=== PATIENT | male | born 1930 | race Caucasian/White ===

== ENCOUNTER 2018-10-24 18:59 | Emergency (ER) | payer OTHER ==
--- OUTSIDE RECORDS SUMMARY | 2018-10-24 19:02 | XMS REPORT | Clinical Summary ---
:1930 Author Organization [facility] Address [address] [place] [address] Care Team Providers Name Role Phone Demetrius Borrero MD Primary Care Provider Allergies Active Allergy Reactions Severity Noted Date Comments Sulfa (Sulfonamide Antibiotics) 11/09/2016 Medications Medication Sig Dispensed Refills Start Date End Date Status DOCOSAHEXANOIC ACID/EPA Take by 0 Active (FISH OIL ORAL) mouth. omeprazole (PriLOSEC) 40 Take 40 mg 0 Active MG capsule by mouth daily. ranitidine (ZANTAC) 150 MG Take 150 mg 0 Active tablet by mouth 2 (two) times a day. atenolol (TENORMIN) 50 MG Take 1 90 tablet 3 01/13/2017 Active tabletIndications: tablet (50 Essential hypertension mg total) by mouth daily. hydroCHLOROthiazide Take 1 30 tablet 6 11/09/2016 11/09/2017 (HYDRODIURIL) 25 MG tablet tablet (25 mg total) by mouth daily. 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 Pre-op examination 11/09/2016 Encounters Date Type Specialty Care Team Description 11/08/2017 Office Visit Cardiology Henrry Franco MD Coronary artery disease involving [place] coronary artery of [place] heart without angina pectoris (Primary Dx); History of right coronary artery stent placement after 10/23/2017 Social History Tobacco Use Types Packs/Day Years Used Date Never Smoker Smokeless Tobacco: Never Used Alcohol Use Drinks/Week oz/Week Comments No Sex Assigned at Date Recorded Not on file Job Start Date Occupation Industry Not on file Not on file Not on file Travel History Travel Start Travel End No recent travel history available. Last Filed Vital Signs Vital Sign Reading Time Taken Blood Pressure 151/67 11/08/2017 1:05 PM CDT Pulse 59 11/08/2017 1:05 PM CDT Temperature - - Respiratory Rate - - Oxygen Saturation - - Inhaled Oxygen Concentration - - Weight 74.8 kg (165 lb) 11/08/2017 1:00 PM CDT Height 175.3 cm (5' 9") 11/08/2017 1:00 PM CDT Body Mass Index 24.37 11/08/2017 1:00 PM CDT Plan of Treatment Date Type Specialty Care Team Description 11/07/2018 Office Visit Cardiology Henrry Franco MD [address] [facility] [address] [place] [address] Health Maintenance Due Date Last Done Comments SHINGLES VACCINES (#1) 1980 65+ PNEUMOCOCCAL VACCINE (1 of 2 - PCV13) 1995 PNEUMOCOCCAL POLYSACCHARIDE VACCINE AGE 65 AND OVER 1995 INFLUENZA VACCINE 02/01/2019 Results Not on fileafter 10/23/2017 Insurance Payer Benefit Plan / Group Subscriber ID Type Phone Address MEDICARE MEDICARE PART A AND B xxxxxxxxxx Medicare [place], [place] [employer] xxxxxx-xx Commercial Advance Directives Patient has advance care planning documents on file. For more information, please contact:Prashanth Cuevas[address] [place] [address]
[2018-10-24 20:01] LABS: Absolute Lymphocytes (CBC) 0.9 K/uL (0.7-4.9); Absolute Monocytes 0.5 K/uL (0.1-1.3); Absolute Neutrophil 5.4 K/uL (1.8-8.0); Basophils % 0.4 % (0-1.3); Hematocrit 43.9 % (39.6-49.0); Lymphocytes % 13.4 % (15.3-44.8); MPV 8.5 fL (7.6-11.3); Monocytes % 7.9 % (3.3-12.3); RBC Red Blood Cell Count 4.56 M/uL (4.33-5.43)
[2018-10-24] MEDS ORDERED: NA CHLORIDE 0.9% 1,000 ML ONE (20:04)
[2018-10-24] MEDS ORDERED: ONDANSETRON 4 MG/2 ML VIAL ONE ×2 (20:04→21:42)
[2018-10-24 20:27] LABS: Albumin 3.4 g/dL (3.4-5.0); Bilirubin Direct 0.3 mg/dL (0-0.2); Bilirubin Total 1.3 mg/dL (0.2-1.0); Potassium 3.3 mmol/L (3.5-5.1); Protein, Total 6.4 g/dL (6.4-8.2)
[2018-10-24] MEDS ORDERED: MAGNE/ALUM HYDROXD 30 ML UCUP ONE (21:42)
--- NOTE | 2018-10-24 21:42 | ER ---
Nurse's Notes [facility] Name: Primo Umaña Age: 88 yrs Sex: Male : 1930 Arrival Date: 10/24/2018 Time: 19:01 Bed 6 Private MD: Demetrius Borrero H Diagnosis: Vomiting Presentation: 10/24 19:10 Presenting complaint: Patient states: vomiting, diarrhea, weakness X1 day. pt with hx ak1 ulcer and prostate cancer. pt stated vomit is black in color. Transition of care: patient was not received from another setting of care. Onset of symptoms was October 24, 2018. 19:10 Method Of Arrival: Wheelchair ak1 19:10 Acuity: NIKOLAS 3 ak1 19:26 Risk Assessment: Do you want to hurt yourself or someone else? Patient reports no lp1 desire to harm self or others. Initial Sepsis Screen: Does the patient meet any 2 criteria? No. Patient's initial sepsis screen is negative. Does the patient have a suspected source of infection? No. Patient's initial sepsis screen is negative. Care prior to arrival: None. Historical: - Allergies: 19:12 Sulfa (Sulfonamide Antibiotics); ak1 - Immunization history:: Adult Immunizations up to date. - Social history:: Smoking status: Patient/guardian denies using tobacco. - Family history:: not pertinent. - Ebola Screening: : No symptoms or risks identified at this time. - Hospitalizations: : No recent hospitalization is reported. Screenin:26 Abuse screen: Denies threats or abuse. Denies injuries from another. Nutritional lp1 screening: No deficits noted. Tuberculosis screening: No symptoms or risk factors identified. Fall Risk None identified. Assessment: 19:24 General: Appears in no apparent distress. Behavior is appropriate for age. Pain: Denies lp1 pain. Neuro: Level of Consciousness is awake, alert, obeys commands, Oriented to person, place, time, situation. Cardiovascular: Patient's skin is warm and dry. Respiratory: Respiratory effort is even, unlabored, Breath sounds are clear bilaterally. GI: Abdomen is flat, Bowel sounds present X 4 quads. Reports diarrhea, vomiting, emesis black in color. : No signs and/or symptoms were reported regarding the genitourinary system. EENT: No signs and/or symptoms were reported regarding the EENT system. Derm: Skin is intact, is fragile, is thin, Skin is dry, Skin is normal. Musculoskeletal: Circulation, motion, and sensation intact. 20:32 Reassessment: Patient appears in no apparent distress at this time. Patient and/or lp1 family updated on plan of care and expected duration. Pain level reassessed. Patient is alert, oriented x 3, equal unlabored respirations, skin warm/dry/pink. Patient states feeling better. 21:10 Reassessment: Patient states feeling of nausea returning at this time; Provider lp1 notified Patient denies pain at this time. 21:59 Reassessment: Patient is alert, oriented x 3, equal unlabored respirations, skin lp1 warm/dry/pink. Patient states relief of nausea Patient states feeling better. Patient states symptoms have improved. Vital Signs: 19:12 BP 118 / 70; Pulse 87; Resp 16; Temp 98.4; Pulse Ox 96% on R/A; Weight 70.31 kg (R); ak1 Height 5 ft. 9 in. (175.26 cm) (R); Pain 0/10; 19:24 BP 156 / 76; Pulse 81; Resp 20; Pulse Ox 97% on R/A; lp1 20:15 BP 137 / 70; Pulse 66; Resp 17; Pulse Ox 100% on R/A; Pain 0/10; lp1 21:00 BP 116 / 74; Pulse 68; Resp 18; Pulse Ox 100% on R/A; Pain 0/10; lp1 22:07 BP 134 / 69; Pulse 68; Resp 17; Pulse Ox 100% on R/A; lp1 19:12 Body Mass Index 22.89 (70.31 kg, 175.26 cm) [facility] ED Course: 19:01 Patient arrived in ED. as 19:02 Demetrius Borrero MD is Private Physician. as 19:12 Triage completed. ak1 19:14 Jenae Mcdonald, YOLI is Primary Nurse. lp1 19:15 Guerrero Do MD is Attending Physician. rn 19:24 Arm band placed on left wrist. lp1 19:28 Patient has correct armband on for positive identification. Placed in gown. Bed in low lp1 position. Call light in reach. equipment monitor phototypesetting on. Pulse ox on. NIBP on. 21:41 Demetrius Borrero MD is Referral Physician. rn 22:07 No provider procedures requiring assistance completed. lp1 22:25 IV discontinued, No redness/swelling at site. Pressure dressing applied. lp1 Administered Medications: 19:57 Drug: Zofran 4 mg Route: IVP; Site: right forearm; lp1 20:28 Follow up: Response: Nausea is decreased lp1 19:57 Drug: NS 0.9% 500 ml Route: IV; Rate: bolus; Site: right forearm; lp1 20:29 Follow up: IV Status: Completed infusion; IV Intake: 500ml lp1 21:38 Drug: Zofran 4 mg Route: IVP; Site: right forearm; lp1 21:58 Follow up: Response: Nausea is decreased lp1 21:58 Drug: GI Cocktail without - (Maalox Suspension 30 ml, Lidocaine Liquid 2 % 15 lp1 ml) Route: PO; 22:25 Follow up: Response: No adverse reaction lp1 21:58 Drug: Pepcid 20 mg Route: PO; lp1 22:25 Follow up: Response: No adverse reaction lp1 Intake: 20:29 IV: 500ml; Total: 500ml. lp1 Outcome: 21:41 Discharge ordered by . rn 22:25 Discharged to home via wheelchair, with family. lp1 22:25 Condition: good 22:25 Discharge instructions given to patient, family, Instructed on discharge instructions, follow up and referral plans. medication usage, Demonstrated understanding of instructions, follow-up care, medications, Prescriptions given X 1. 22:26 Patient left the ED. lp1 Signatures: Jennifer Fields Roman, MD MD rn Pena, Laura, RN RN lp1 Jocelyn Suarez RN RN ak1
--- NOTE | 2018-10-24 21:42 | EDPHYS ---
Physician Documentation [facility] Name: Primo Umaña Age: 88 yrs Sex: Male : 1930 Arrival Date: 10/24/2018 Time: 19:01 Bed 6 Private MD: Demetrius Borrero H ED Physician Guerrero Do HPI: 10/24 19:29 This 88 yrs old Male presents to ER via Wheelchair with complaints of rn Vomiting, Weakness. 19:29 The patient presents to the emergency department with nausea, vomiting. Onset: The rn symptoms/episode began/occurred today. Possible causes: unknown. The symptoms are aggravated by nothing. The symptoms are alleviated by nothing. Severity of symptoms: At their worst the symptoms were mild in the emergency department the symptoms are unchanged. The patient has experienced similar episodes in the past. The patient has not recently seen a physician. . Historical: - Allergies: 19:12 Sulfa (Sulfonamide Antibiotics); ak1 - Immunization history:: Adult Immunizations up to date. - Social history:: Smoking status: Patient/guardian denies using tobacco. - Family history:: not pertinent. - Ebola Screening: : No symptoms or risks identified at this time. - Hospitalizations: : No recent hospitalization is reported. ROS: 19:30 Constitutional: Negative for fever, chills, and weight loss, Eyes: Negative for injury, rn pain, redness, and discharge, Neck: Negative for injury, pain, and swelling, Cardiovascular: Negative for chest pain, palpitations, and edema, Respiratory: Negative for shortness of breath, cough, wheezing, and pleuritic chest pain, Abdomen/GI: + nausea/vomiting, no abd pain : Negative for injury, bleeding, discharge, and swelling, MS/Extremity: Negative for injury and deformity, Skin: Negative for injury, rash, and discoloration, Neuro: + generalized weakness Exam: 19:30 Constitutional: This is a well developed, well nourished patient who is awake, alert, rn and in no acute distress. Head/Face: Normocephalic, atraumatic. Eyes: Pupils equal round and reactive to light, extra-ocular motions intact. Lids and lashes normal. Conjunctiva and sclera are non-icteric and not injected. Cornea within normal limits. Periorbital areas with no swelling, redness, or edema. ENT: dry MM Cardiovascular: Regular rate and rhythm. No pulse deficits. Respiratory: Lungs have equal breath sounds bilaterally, clear to auscultation. No increased work of breathing, no retractions or nasal flaring. Abdomen/GI: soft, non-tender, no masses MS/ Extremity: Pulses equal, no cyanosis. Neurovascular intact. Full, normal range of motion. Equal circumference. Neuro: Awake and alert, GCS 15, oriented to person, place, time, and situation. Cranial nerves II-XII grossly intact. Motor strength 5/5 in all extremities. Sensory grossly intact. Vital Signs: 19:12 BP 118 / 70; Pulse 87; Resp 16; Temp 98.4; Pulse Ox 96% on R/A; Weight 70.31 kg (R); ak1 Height 5 ft. 9 in. (175.26 cm) (R); Pain 0/10; 19:24 BP 156 / 76; Pulse 81; Resp 20; Pulse Ox 97% on R/A; lp1 20:15 BP 137 / 70; Pulse 66; Resp 17; Pulse Ox 100% on R/A; Pain 0/10; lp1 21:00 BP 116 / 74; Pulse 68; Resp 18; Pulse Ox 100% on R/A; Pain 0/10; lp1 22:07 BP 134 / 69; Pulse 68; Resp 17; Pulse Ox 100% on R/A; lp1 19:12 Body Mass Index 22.89 (70.31 kg, 175.26 cm) ak1 MDM: 19:15 Patient medically screened. rn 21:39 Differential diagnosis: gastritis, viral gastroenteritis, gastroenteritis, upper GI rn bleed. Data reviewed: vital signs, nurses notes, lab test result(s), and as a result, I will discharge patient. Counseling: I had a detailed discussion with the patient and/or guardian regarding: the historical points, exam findings, and any diagnostic results supporting the discharge/admit diagnosis, lab results, the need for outpatient follow up, to return to the emergency department if symptoms worsen or persist or if there are any questions or concerns that arise at home. Response to treatment: the patient's symptoms have markedly improved after treatment, and as a result, I will discharge patient. Special discussion: I discussed with the patient/guardian in detail that at this point there is no indication for admission to the hospital. It is understood, however, that if the symptoms persist or worsen the patient needs to return immediately for re-evaluation. Based on the history and exam findings, there is no indication for further emergent testing or inpatient evaluation. I discussed with the patient/guardian the need to see the field coil winder for further evaluation of the symptoms. ED course: Pt with normal bloodwork, no need for emergent scope at this point, will dc home with Dr. Borrero f/u as he is his GI doctor, return precautions given and understood, will go home, mild diet, and take antacid medication. Will prescribe zofran prn. . 21:41 ED course: No abdominal tenderness. rn 10/24 19:23 Order name: Basic Metabolic Panel; Complete Time: 21:14 rn 10/24 19:23 Order name: CBC with Diff; Complete Time: 21:14 rn 10/24 19:23 Order name: Hepatic Function; Complete Time: 21:14 rn 10/24 19:23 Order name: Lipase; Complete Time: 21:14 rn 10/24 19:23 Order name: Type And Screen; Complete Time: 21:14 rn 10/24 19:23 Order name: IV Saline Lock; Complete Time: 19:57 rn 10/24 19:23 Order name: Labs collected and sent; Complete Time: 19:57 rn Administered Medications: 19:57 Drug: Zofran 4 mg Route: IVP; Site: right forearm; lp1 20:28 Follow up: Response: Nausea is decreased lp1 19:57 Drug: NS 0.9% 500 ml Route: IV; Rate: bolus; Site: right forearm; lp1 20:29 Follow up: IV Status: Completed infusion; IV Intake: 500ml lp1 21:38 Drug: Zofran 4 mg Route: IVP; Site: right forearm; lp1 21:58 Follow up: Response: Nausea is decreased lp1 21:58 Drug: GI Cocktail without - (Maalox Suspension 30 ml, Lidocaine Liquid 2 % 15 lp1 ml) Route: PO; 22:25 Follow up: Response: No adverse reaction lp1 21:58 Drug: Pepcid 20 mg Route: PO; lp1 22:25 Follow up: Response: No adverse reaction lp1 Disposition: 10/24/18 21:41 Discharged to Home. Impression: Vomiting. - Condition is Stable. - Discharge Instructions: Nausea and Vomiting, Adult. - Prescriptions for Zofran ODT 4 mg Oral tablet,disintegrating - place 1 tablet by TRANSLINGUAL route every 8 hours As needed; 20 tablet. - Medication Reconciliation Form, Thank You Letter, Antibiotic Education, Prescription Opioid Use form. - Follow up: Demetrius Borrero MD; When: Tomorrow; Reason: Recheck today's complaints, Re-evaluation by your physician. - Problem is new. - Symptoms have improved. Signatures: Dispatcher [employer] EDAL Guerrero Do MD MD rn Jenae Mcdonald RN RN lp1 Jocelyn Suarez RN RN ak1 Corrections: (The following items were deleted from the chart) 22:26 21:41 10/24/2018 21:41 Discharged to Home. Impression: Vomiting. Condition is Stable. lp1 Forms are Medication Reconciliation Form, Thank You Letter, Antibiotic Education, Prescription Opioid Use. Follow up: Demetrius Borrero; When: Tomorrow; Reason: Recheck today's complaints, Re-evaluation by your physician. Problem is new. Symptoms have improved. rn
[2018-10-24] MEDS ORDERED: FAMOTIDINE 20 MG TAB ONE (21:43)
[2018-10-24] MEDS ORDERED: LIDOCAINE VISCOUS 2% SOLN 15 ML UDC ONE (21:43)
[2018-10-24 22:54] VITALS: TEMP 98.4
[2018-10-24 22:57] VITALS: O2SAT 100
[2018-10-24 22:59] VITALS: BP 134/69
== END 2018-10-24 22:26 | disposition home or self-care (01) ==
LOC: ER 18:59
DX: R11.10 Vomiting, unspecified (principal); Z88.2 Allergy status to sulfonamides
CPT/HCPCS: 96361; 85025; 80048; 36415; 86900; 86850; 86901; 80076; 83690; 96374; 99284; J7030; J2405 ×2